=== PATIENT | male | born 1960 | race Caucasian/White ===

== ENCOUNTER 2018-05-05 09:08 | Emergency (ER) | payer OTHER ==
[~2018-05-05] VITALS: Ht 175.3 cm; Wt 109.0 kg
[2018-05-05 11:23] VITALS: BP 176/111
== END 2018-05-05 16:01 | disposition left against medical advice (07) ==
LOC: ER 09:21
DX: I10 Essential (primary) hypertension (principal); M79.10 Myalgia, unspecified site; R11.0 Nausea; Z53.21 Procedure and treatment not carried out due to patient leaving prior to being seen by health care provider